=== PATIENT | female | born 1960 | race African-American/Black ===

== ENCOUNTER 2016-09-29 22:35 | Inpatient (IN) | payer OTHER ==
--- NOTE | ~2016-09-29 | HP ---
History And Physical [address] [place]. [address] NAME: ANA LOPEZ : 64 STATUS : ADM Ben PAT#: [id number] AGE: 56 ADM/REG DATE : 09/29/16 MR#: [id number] REPORT SERV DATE: 09/30/16 DICTATED BY: GIULIANA BALDERRAMA DATE: 09/29/16 REPORT STATUS : Draft TRANSCRIBED BY: MODL DATE: 09/29/16 DATE OF ADMISSION: 09/29/2016 CHIEF COMPLAINT: Short of breath. HISTORY OF PRESENT ILLNESS: The patient is a 56-year-old female with past medical history of COPD, hypertension, anxiety, type 2 diabetes, who presents after having progressive shortness of breath over the last week that got worse while she was in mosque yesterday that has been constant, moderate severity with tightness and substernal chest pain nonradiating. No nausea, vomiting, fever, or chills. The patient has increased dyspnea on exertion with chest pain, breathing that happened over the last week where she was not even able to get to the bathroom without dyspnea. The patient has been on oxygen at home, did run out in transit here but now requiring up to 5 L to maintain O2 sats 93%. Symptoms are still currently present but slightly improved at rest, has taken nebulizer treatments at home but it did not improve. The patient reports that a few months ago, she had cardiac cath at [facility] but did not know the results but was not also given any followup either. REVIEW OF SYSTEMS: GENERAL: No fevers or chills. EYES: No eye pain or visual changes. ENT: No congestion or sore throat. NEURO: No headache or confusion. SKIN: No rashes or bruising. RESPIRATORY: Shortness of breath and dyspnea on exertion. CV: Chest tightness with no palpitations. GI: No nausea, vomiting, or constipation. Did have 3 days of diarrhea, but this has since resolved. : No dysuria or hematuria. MUSCULOSKELETAL: No myalgias or arthralgias. No fatigue or polyuria. HEME: No bleeding or bruising. IMMUNOLOGIC: No rhinorrhea. PSYCH: No anxiety or confusion. PAST MEDICAL HISTORY: Significant for COPD, still 1 pack per day smoker, sleep apnea, 2 L by nasal cannula dependent. [place] with coronary artery disease and stent, does not regularly follow with director of neurology, hypertension, diabetes type 2, insulin dependent, hypothyroidism, hyperlipidemia, obesity, depression, anxiety, bipolar versus schizoaffective, GERD with esophagitis, and OA. SURGICAL HISTORY: Three C sections, tubal stents. ALLERGIES: ALLERGIC TO PENICILLIN, CEPHALOSPORIN, CARBAMAZEPINE, AND GRISEOFULVIN. THE PATIENT REPORTS THAT SHE ONLY RECALLS HAVING PENICILLIN ALLERGY THOUGH. FAMILY HISTORY: Of hypertension, CAD, and diabetes. History And Physical [address] [address] NAME: ANA LOPEZ : 64 STATUS : ADM Ben PAT#: [id number] AGE: 56 ADM/REG DATE : 09/29/16 MR#: [id number] REPORT SERV DATE: 09/30/16 DICTATED BY: GIULIANA BALDERRAMA DATE: 09/29/16 REPORT STATUS : Draft TRANSCRIBED BY: DANIEL DATE: 09/29/16 SOCIAL HISTORY: Smokes 1 pack per day since she was 15. No alcohol or illicits. MEDICATIONS: DuoNeb, Proventil, BuSpar, vitamin D, Depakote, TriCor, Glucovance, Lantus, Humalog, levothyroxine, Zestoretic, Prilosec, Invega, Deltasone, Seroquel, Zocor. EKG; sinus tachycardia, rate of 109, QTc 490, left axis deviation. PHYSICAL EXAMINATION: VITAL SIGNS: Blood pressure 128/65, temperature 98.5, pulse 101, respirations 18, O2 sats 90% on 5 L. GENERAL: No acute distress. EYES: No scleral icterus. EOMI. ENT: Nares patent. Tongue midline. RESPIRATORY: Wheezing in left posterior and right anterior lung odom. Decreased lung sounds in lower lung odom. No stridor. CV: Regular rate. No rubs. GI: Soft, nontender, nondistended. : Deferred. MUSCULOSKELETAL: Moves all extremities x4. SKIN: Warm, dry. LYMPH: No cervical or supraclavicular lymphadenopathy. HEME: No bleeding or bruising. NEURO: Alert and oriented. Moves all extremities x4. PSYCH: Calm and pleasant, no acute distress. LABORATORY DATA: WBC 10.7, H and H 15.8 and 47, platelets 364, INR 1.1. Sodium 141, potassium 4.0, chloride 102, bicarb 35, BUN creatinine 17 and 1.26, glucose 126, magnesium 1.8, troponin 0.55, and calcium of 9.3. ASSESSMENT AND PLAN: 1. Acute chronic obstructive pulmonary disease exacerbation. 2. Acute on chronic hypoxic respiratory failure. 3. Chronic troponin elevation. 4. Diabetes type 2. 5. Hypertension. 6. Hypothyroidism. 7. Schizoaffective disease. 8. Tobacco use. PLAN: 1. For acute COPD exacerbation, needs to stop smoking. Steroids, O2, DuoNeb, 2 L to 5 L current requirements, CPAP at night. Continue home CPAP and flutter valve. 2. Acute on chronic hypoxic respiratory failure, on CPAP, O2. Treat underlying COPD, stop smoking. 3. Chronic troponin elevation. Serial monitoring, previously had supply demand mismatch. Recent cath at [facility]. We will try to obtain records, does have recent chest pain, not current. History And Physical [address] [address] NAME: ANA LOPEZ : 64 STATUS : ADM Ben PAT#: [id number] AGE: 56 ADM/REG DATE : 09/29/16 MR#: [id number] REPORT SERV DATE: 09/30/16 DICTATED BY: GIULIANA BALDERRAMA DATE: 09/29/16 REPORT STATUS : Draft TRANSCRIBED BY: DANIEL DATE: 09/29/16 4. Diabetes type 2, on sliding scale insulin. 5. Hypertension, on medications. 6. Hypothyroidism, on replacement. 7. Schizoaffective disease. Continue home medications. 8. Tobacco use. Counseled, not currently interested in stopping smoking. We will additionally offer nicotine patch. All questions answered to the patient at bedside. DDN/MODL Giuliana Balderrama MD / [id number] CC: Jeremi Morales Jr, MD
--- NOTE | ~2016-09-29 | IDS ---
Interim Discharge Summary [facility] [address] [place]. [address] NAME: ANA LOPEZ : 64 STATUS : ADM IN [facility]#: [id number] AGE: 56 ADM/REG DATE : 09/29/16 MR#: [id number] REPORT SERV DATE: 10/03/16 DICTATED BY: JR. MORALES WILLIAM JOHN DATE: 10/03/16 REPORT STATUS : Draft TRANSCRIBED BY: MODL DATE: 10/03/16 ADMISSION DATE: 09/29/2016 DISCHARGE DATE: 10/03/2016 This summary covers the time period from 09/29/2016 through 10/03/2016. WORKING DIAGNOSES: Include 1. Chronic obstructive pulmonary disease exacerbation. 2. Acute on chronic hypoxic respiratory failure. She uses 4-to-5 L oxygen at baseline. 3. Chronically elevated troponins. 4. Insulin-requiring diabetes mellitus. 5. Hypertension. 6. Acquired hypothyroidism. 7. Schizoaffective disorder. 8. Chronic kidney disease, stage III. 9. History of chest pain. 10.Tobacco abuse. OPERATIONS, PROCEDURES, AND TREATMENTS: Operations, procedures, and treatments include 1. Cardiology consultation by Dr. Khan, who saw the patient recently at [facility] and did a catheterization in June 2016 with no significant coronary disease. 2. Pulmonology consult Dr. Rao. 3. PA and lateral chest x-ray done 09/29/2016, which showed prominent bibasilar atelectasis, otherwise no acute process. 4. Chest x-ray done 10/02/2016, which showed residual bibasilar atelectasis without new lung infiltrates or cardiomegaly. 5. CT angiogram of the chest done 10/02/2016, which showed no CTA evidence of pulmonary embolism. There was cardiomegaly with a small pericardial effusion. There was subsegmental atelectasis of the right upper lobe, right middle lobe, and lingular and bilateral lower lobes. No endobronchial lesions noted. There was some mild central lobular emphysema in the upper lung zones. Anticipated discharge medications include 1. BuSpar 20 mg orally daily. 2. Vitamin D 1000 units daily. 3. Depakote 500 mg twice a day. 4. Doxycycline 100 twice a day through 10/05/2016. 5. TriCor 145 mg orally daily. 6. Guaifenesin LA 600 mg twice a day for seven days. 7. Glargine insulin 75 units at bedtime. 8. Synthroid 150 mcg orally daily. 9. Lisinopril/hydrochlorothiazide 20/25, one tablet orally daily. 10.Omeprazole 40 mg daily. 11.Seroquel 600 daily. 12.Invega 6 mg at bedtime. 13.Zocor 40 mg daily. 14.DuoNeb nebulized every four hours. Interim Discharge Summary [address] [address] NAME: ANA LOPEZ : 64 STATUS : ADM IN PAT#: [id number] AGE: 56 ADM/REG DATE : 09/29/16 MR#: [id number] REPORT SERV DATE: 10/03/16 DICTATED BY: JR. MORALES WILLIAM JOHN DATE: 10/03/16 REPORT STATUS : Draft TRANSCRIBED BY: DANIEL DATE: 10/03/16 15.Dulera two puffs twice a day. 16.Glucovance 5/500 one tablet twice a day. 17.Albuterol metered dose inhaler four times a day as needed. 18.Sliding scale Humalog insulin. 19.Prednisone 40 mg daily for three days, then 20 daily for three days, then 10 daily for three days, then 5 mg chronically as she was previously on. HOSPITAL COURSE: The patient is a 56-year-old female who presented to the emergency room on 09/29/2016, with shortness of breath. She has chronic hypoxic respiratory failure and is on 4-to-5 L at home. She said she got more short of breath when she went to [employer] the prior day. She also complained of moderate severity chest pressure and tightness without nausea, fevers, or chills and also had increasing dyspnea on exertion. Initial exam was significant for blood pressure 128/65, temperature 98.5, heart rate 101, respiratory rate of 18, and saturation was 90% on 5 L. Her lung exam showed wheezing in the left posterior and right anterior lung field with decreased breath sounds throughout. There was no edema noted. Initial laboratory was overall unremarkable except the troponin of 0.55. For full details, please see Dr. Pierre's dictated history and physical. Regarding the patient's acute on chronic hypoxic respiratory failure and chest pain, the patient was seen in consultation by Dr. Khan of cardiology who did a cardiac catheterization in June at [facility] at which time, she had normal coronaries. She also has a history of chronically elevated troponin and he felt no further Cardiology needs were identified. The patient's troponins were flat and no other intervention was taken. I did send for records from [facility] but have not received them at the time of this dictation. Regarding her COPD exacerbation, she was on IV steroids as well as bronchodilator therapy with Combivent, to this, I added Mucinex as well as Dulera. The patient remained on eight-to ten liters for the first three days of the hospitalization. We also very much encouraged incentive spirometry as well as a flutter valve with nebulizers to aid in expectoration. The patient failed to improve. I asked Pulmonology, Dr. Rao, to see the patient. He felt that the instituted measures were reasonable and did request a CT angiogram of the chest which did not show pulmonary embolism, it did show prominent atelectatic changes and mild upper lobe centrilobular emphysematous change. The patient has been weaned down to 5 L this morning. The plan is to continue the current medications with an anticipation of a prednisone taper. She is on 5 mg of prednisone chronically. We will get a desaturation study in the morning. If the patient requires less than 5 L or less, we will discharge her home. I discussed this with Dr. Varner who will be assuming care of this patient. Regarding the patient's insulin-requiring diabetes mellitus after IV steroids were discontinued, this was under reasonable control on the above regimen. The remainder of the patient's health problems were unremarkable. I did discuss tobacco cessation with the patient. She had limited interest in this. DISCHARGE DIET: Will be an ADA diet. Interim Discharge Summary [address] [address] NAME: ANA LOPEZ : 64 STATUS : ADM IN PAT#: [id number] AGE: 56 ADM/REG DATE : 09/29/16 MR#: [id number] REPORT SERV DATE: 10/03/16 DICTATED BY: JR. MORALES WILLIAM JOHN DATE: 10/03/16 REPORT STATUS : Draft TRANSCRIBED BY: DANIEL DATE: 10/03/16 ACTIVITY: As tolerated. FOLLOWUP: Followup, when the patient is discharged, will be with her primary care provider, Dr. Bruce Díaz. For today's lab and exam, please see the daily progress notes. WJF/MODL Jeremi Morales Jr, MD / [id number] CC: Jeremi Morales Jr, MD Raphael Lanade, M.D.
--- NOTE | ~2016-09-29 | CN ---
Consultation Report [facility] [address] [place] [place]. [address] NAME: ANA LOPEZ : 64 STATUS : ADM Ben PAT#: [id number] AGE: 56 ADM/REG DATE : 09/29/16 MR#: [id number] REPORT SERV DATE: 10/01/16 DICTATED BY: BON KHAN DATE: 09/30/16 REPORT STATUS : Draft TRANSCRIBED BY: MODL DATE: 09/30/16 CARDIOLOGY CONSULTATION DATE OF CONSULTATION: 09/30/2016 REASON FOR REFERRAL: Chest pain and positive troponin. HISTORY OF PRESENT ILLNESS: A 56-year-old patient I saw over at [facility] in 06/2016. She had a similar presentation. Cardiac catheterization was normal. She tells me since her 06/2016 discharge from [facility] she has actually felt well until Thursday where she developed sudden onset of chest pain. She describes as sharp in nature. Denies any physical activities that may have produced musculoskeletal strain. She has not seen Dr. Díaz since her 06/[address] Antonio is her blackener. She is on 3 L of oxygen at home by nasal cannula and continues to smoke. Her troponins are fairly flat, unchanged at 0.5. EKG without dynamic ST-T changes, and she is currently in no distress getting respiratory treatment. She claims that since arrival she has improved, and there have been no additional clinical concerns. Other medical problems include obesity, hypertension, diabetes mellitus, unspecified psychiatric problems, and continued tobacco use, which presented health risks. Case was discussed briefly with the nurse as well as a respiratory therapist in the room. Vital signs have been reviewed. PHYSICAL EXAMINATION: GENERAL: A pleasant Afro-Swiss female, in no distress. Lying flat. Appears to be fairly comfortable. She is receiving nebulizer treatment via face mask. HEENT: Unremarkable. Neck veins are flat. LUNGS: Fairly clear except for very end-expiratory wheeze, which is very short. This was also appreciated by the respiratory therapist. HEART: Sounds are regular. No loud murmurs, rubs, gallops or clicks. ABDOMEN: Soft. Extremities have no edema. LABS: Fairly unremarkable. No white count elevation. Troponins are 0.58 and 0.55 respectively. IMPRESSION: 1. Atypical chest pain. Recent cardiac catheterization demonstrating essentially normal coronaries. 2. Chronic obstructive pulmonary disease, on home oxygen. Continues to smoke. 3. Obesity. 4. Hypertension. PLAN: No further cardiac testing is recommended at this time. I will cancel the remaining troponins if appear to be flat. She may have some type of chronic troponin elevation. It is very minimal and from a noncardiac source. Consultation Report [facility] [address] [place] [place]. [address] NAME: ANA LOPEZ : 64 STATUS : ADM Ben PAT#: [id number] AGE: 56 ADM/REG DATE : 09/29/16 MR#: [id number] REPORT SERV DATE: 10/01/16 DICTATED BY: BON KHAN. DATE: 09/30/16 REPORT STATUS : Draft TRANSCRIBED BY: DANIEL DATE: 09/30/16 Thank you for allowing me to participate in her care. RODRIGO/DANIEL Bon Khan D.O. / [id number] CC: Jeremi Morales Jr, MD
--- NOTE | ~2016-09-29 | CN ---
Consultation Report [address] [place]. [address] NAME: ANA LOPEZ : 64 STATUS : ADM IN PAT#: [id number] AGE: 56 ADM/REG DATE : 09/29/16 MR#: [id number] REPORT SERV DATE: 10/03/16 DICTATED BY: MELISA SAVAGE DATE: 10/02/16 REPORT STATUS : Draft TRANSCRIBED BY: MODL DATE: 10/02/16 DATE OF CONSULTATION: Dear Dr. Pierre: Thank you for requesting my opinion regarding evaluation and management of Ms. Ana Lopez's shortness of breath. Ms. Silverman is a pleasant 56-year-old female with a significant past medical history of obesity, COPD, hypertension, anxiety, type 2 diabetes, who presented with 1-week history of worsening shortness of breath. She developed sudden onset of worsening substernal chest pain and pressure, nonradiating, moderate in intensity, and well-localized. The patient underwent cardiac catheterization at [facility] and transferred over to [facility] for further medical management. The patient states that she has gotten significantly better as an inpatient and her symptoms are now mild in nature. REVIEW OF SYSTEMS: A detailed 14-point review of systems was completed. Pertinent positives and negatives are listed above. PAST MEDICAL HISTORY: 1. COPD. 2. Active tobacco abuse, one pack per day smoker. 3. Sleep apnea. 4. 2 L nasal cannula. 5. [place] with coronary artery disease and stent. 6. Hypertension. 7. Diabetes type 2. 8. Hypothyroidism. 9. Hyperlipidemia. 10.Obesity. 11.Depression. 12.Anxiety. 13.Bipolar versus schizoaffective disorder. 14.GERD with esophagitis. 15.Osteoarthritis. PAST SURGICAL HISTORY: Three C sections and tubal stents. ALLERGIES: PENICILLIN, CEPHALOSPORIN, CARBAMAZEPINE, AND GRISEOFULVIN. HOME MEDICATIONS: Reviewed and located in the paper chart. FAMILY HISTORY: Coronary artery disease, hypertension, diabetes. SOCIAL HISTORY: The patient smokes one pack per day since the age of 15. She denies any Consultation Report [address] [place]. [address] NAME: ANA LOPEZ : 64 STATUS : ADM IN PAT#: [id number] AGE: 56 ADM/REG DATE : 09/29/16 MR#: [id number] REPORT SERV DATE: 10/03/16 DICTATED BY: JANETTECHENCHOTREY DATE: 10/02/16 REPORT STATUS : Draft TRANSCRIBED BY: DANIEL DATE: 10/02/16 significant alcohol or illicit drug abuse. PHYSICAL EXAMINATION: VITAL SIGNS: Afebrile, T-current of 97.1, pulse of 84, respiratory rate of 18, 6 L nasal cannula, 90%, blood pressure 128/73. GENERAL: In no acute distress. Able to communicate in full paragraphs at a time. HEENT: Normocephalic and atraumatic. Pupils are equal, round, and reactive to light and accommodation. Posterior oropharynx is clear. NECK: No JVD. Thick neck. CARDIOVASCULAR: Regular rate and rhythm. S1 and S2 present. LUNGS: Coarse bilateral breath sounds. No wheezes. ABDOMEN: Nontender. Nondistended. Soft. Positive bowel sounds. EXTREMITIES: No clubbing, cyanosis, or edema. SKIN: No new rashes, lesions, or ulcers. PSYCHIATRIC: Alert and oriented x3. LABORATORY STUDIES: White count of 18, hemoglobin of 15, platelet count of 321. Chemistries demonstrate a creatinine of 1.01. IMAGING: Chest x-ray on 10/02/2016, demonstrates residual bibasilar atelectasis and no new lung infiltrates and cardiomegaly. I reviewed chest x-ray on 10/02/2016, and agree with the above interpretation. ASSESSMENT AND PLAN: Ms. Ana Lopez is a pleasant 56-year-old female with a significant past medical history of obesity, obstructive sleep apnea, COPD, active tobacco abuse, and coronary artery disease, who presents to [facility] with shortness of breath and a history of chest pain. Her chest pain has significantly resolved and currently she says that her symptoms have improved, but she is requiring increasing amounts of oxygen. She started 2 L nasal cannula and is now requiring 5 to 7 L. The clinical radiographic presentation is most consistent with: 1. Bibasilar atelectasis. 2. Acute exacerbation of COPD. 3. Concomitant potential heart failure. RECOMMENDATIONS: At this point, I recommend the followin. For acute exacerbation of COPD, I would recommend continuing Solu-Medrol, Dulera, Combivent, and Mucomyst. 2. Change Solu-Medrol to prednisone 40 mg p.o. daily. The patient had a prominent leukocytosis. 3. Obtain CTA of the chest to rule out underlying pulmonary embolism given her history of chest pain and troponin leak as well as re-evaluate her lung parenchyma especially with regard to the bibasilar atelectasis. Thank you for allowing me to participate in Ms. Lopez's care. Consultation Report [address] [place]. [address] NAME: ANA LOPEZ : 64 STATUS : ADM IN PAT#: [id number] AGE: 56 ADM/REG DATE : 09/29/16 MR#: [id number] REPORT SERV DATE: 10/03/16 DICTATED BY: MELISA SAVAGE DATE: 10/02/16 REPORT STATUS : Draft TRANSCRIBED BY: DANIEL DATE: 10/02/16 ROLANDO/DANIEL Melisa Savage M.D. / [id number] CC: Jeremi Morales Jr, MD Raphael Lanade, M.D.
--- NOTE | ~2016-09-29 | DS ---
Discharge Summary [id number] [place]. [address] NAME: ANA LOPEZ : 64 STATUS : DIS IN PAT#: [id number] AGE: 56 ADM/REG DATE : 09/29/16 MR#: [id number] REPORT SERV DATE: 10/04/16 DICTATED BY: JERSON SEGURA DATE: 10/04/16 REPORT STATUS : Draft TRANSCRIBED BY: MODL DATE: 10/04/16 ADMISSION DATE: 09/29/2016 DISCHARGE DATE: 10/04/2016 ADDENDUM: This an addendum to the interim discharge summary that was dictated by Dr. Jeremi Morales on 10/03/2016 because the patient was still hospitalized and she went home on 10/04/2016. DISCHARGE DIAGNOSES: 1. Chronic obstructive pulmonary disease exacerbation, resolved. 2. Chronic hypoxemic respiratory failure at home, uses 4-5 L of oxygen at baseline. 3. Insulin-dependent diabetes mellitus, controlled. 4. Hypertension, controlled. 5. History of hypothyroidism. 6. History of chronically elevated troponins with a history of normal coronary catheterization in 06/2016. No significant coronary artery disease. 7. Tobacco abuse. CONSULTANTS ON THE CASE: Field Scout, Dr. Rao. HOSPITAL COURSE: For the details of hospitalization, work done and discharge medications, please see interim discharge summary dictated by Dr. Jeremi Morales yesterday on 10/03/2016. The patient's discharge was delayed because the patient's oxygenation needed to be checked today, and the patient's oxygenation was 87-89 on 4 L nasal cannula and on 5 L was 96-97 at rest and the patient's oxygenation on ambulation was 92% on 6 L of nasal cannula. The patient was evaluated by ict developer, Dr. Rao this morning after I saw the patient, and Dr. Rao said that this is patient's baseline oxygen requirement. Since her oxygenation is 91-92 on 4 L at rest and 92 on 6 L on ambulation, he recommended the patient to be discharged today. As I dictated above, discharge medications per Dr. Morales's recommendations. MG/MODL Jerson Segura M.D. / [id number] CC: Garth Mark M.D.
--- NOTE | ~2016-09-29 | DS ---
Discharge Summary [facility] [address] [place]. [address] NAME: ANA LOPEZ : 64 STATUS : DIS IN PAT#: [id number] AGE: 56 ADM/REG DATE : 09/29/16 MR#: [id number] REPORT SERV DATE: 10/04/16 DICTATED BY: JERSON SEGURA DATE: 10/04/16 REPORT STATUS : Draft TRANSCRIBED BY: MODL DATE: 10/04/16 ADMISSION DATE: 09/29/2016 DISCHARGE DATE: 10/04/2016 ADDENDUM Since the patient's blood sugar was controlled on the discharge medications, we told the patient to decrease her home Levemir to 25 units at bedtime. Use NovoLog, to decrease the NovoLog to 5 units twice a day. Nurse Whitney called the patient and told her to decrease her Lantus to 25 units at bedtime and to decrease her NovoLog to 5 units twice a day in addition to sliding scale. The patient was agreeable to it and she will need to follow up with her primary care physician, Dr. Bruce Díaz, next week as well as with the hosted services analyst, Dr. Antonio in one- to-two weeks. MG/MODL Jerson Segura M.D. / [id number] CC: Garth Mark M.D.
[2016-09-29 18:19] LABS: BASOPHILS 0.2 %; BASOPHILS ABSOLUTE 0.02 10/3/uL (0.0-0.16); EOSINOPHILS 0.5 %; EOSINOPHILS ABSOLUTE 0.05 10/3/uL (0.0-0.53); ER CBC TAT 0 Hrs 05 Mins; HEMOGLOBIN 15.8 g/dL (12.0-16.0); IMMATURE GRANULOCYTES 0.5 %; IMMATURE GRANULOCYTES ABSOLUTE 0.05 10/3/uL (0.0-0.11); LYMPHOCYTES 30.7 %; LYMPHOCYTES ABSOLUTE 3.29 10/3/uL (0.67-4.30); MEAN CORPUS HGB CONC 33.6 g/dL (32.0-36.0); MEAN CORPUSCULAR HEMOGLOB 33.4 pg (26.0-34.0); MEAN PLATELET VOLUME 9.8 fL (9.2-13.0); MONOCYTES ABSOLUTE 0.97 10/3/uL (0.21-1.20); NEUTROPHILS 59.1 %; NEUTROPHILS ABSOLUTE 6.35 10/3/uL (2.02-8.40); PLATELET COUNT 364 10/3/uL (150-400); RED CELL COUNT 4.73 10/6/uL (4.0-5.6); WHITE BLOOD CELLS 10.7 10/3/uL (4.5-10.5)
[2016-09-29 18:22] LABS: MANUAL DIFF NO %; MEAN CORPUSCULAR VOLUME 99.4 fL (80-100)
[2016-09-29 18:35] LABS: BUN (BLOOD UREA NITROGEN) 17 MG/DL (6-23); CALCIUM, SERUM 9.3 MG/DL (8.5-10.4); CHEST PAIN PROFILE TAT 0 Hrs 21 Mins; CHLORIDE, SERUM 102 MMOL/L (96-112); CO2 (CARBON DIOXIDE) 35 MMOL/L (24-34); CREATININE 1.26 MG/DL (0.55-1.02); GFR AFRICAN AMERICAN 56 ML/MIN (>=60); GFR NON AFRICAN AMERICAN 48 ML/MIN (>=60); GLUCOSE, SERUM 126 MG/DL (60-99); INTERNATIONAL NORMAL RATI 1.1 UNITS (-); PARTIAL THROMBO TIME 32.6 SEC (22.5-37.2); PROTIME (NOT ORD) 14.5 SEC (12.0-14.5); SODIUM, SERUM 141 MMOL/L (135-148); TROPONIN I 0.55 NG/ML (<0.05)
[~2016-09-29 22:35] MED LIST: ALEVE220 MG PO; BUSPAR10 PO; CELEXA40 MG PO; DEPAKOT500 PO; DIABETA5 PO; GLUCOPHAGE1000 MG PO; GLUCOV5 PO; HABIT14 TOP; HALF81 PO; HUMALOG SC; INVEGA6 MG PO; LANTUS SC; LEVOTHROID100 MCG PO; LOFIBRA134 MG PO; MAXIMUM D3 PO; NEXIUM40 PO; NOVOLOGMIX SC; NTG150 SL; P20 PO; PRILOSEC40 MG PO; PRINZIDE1 TA1 PO; PROVENTSOL INH; SEROQUEL300 MG PO; SEROQUEL400 MG PO; SYMBICORT; SYMBICORT 80/4.1 INH INH; SYN.15 PO; SYNTHROID175 MCG PO; T PO; TEARS NATURA OPH; TRICOR145 PO; VENTOLIN HFA INH; VITAMIN D PO; XYZAL5 MG PO; ZESTORETIC1 TA1 PO; ZOCOR40 PO
[2016-09-29] MEDS ORDERED: ZOCOR40 PO (22:44)
[2016-09-29] MEDS ORDERED: SEROQUEL300 MG PO (22:44)
[2016-09-29] MEDS ORDERED: GLUCOV5 PO (22:45)
[2016-09-29] MEDS ORDERED: INVEGA6 MG PO (22:45)
[2016-09-29] MEDS ORDERED: PRILOSEC40 MG PO (22:45)
[2016-09-29] MEDS ORDERED: DEPAKOT500 PO (22:45)
[2016-09-29] MEDS ORDERED: LEVOTHYROXIN150 MCG PO (22:46)
[2016-09-29] MEDS ORDERED: VITAMIN D1000 UNI1 PO (22:46)
[2016-09-29] MEDS ORDERED: ZESTORETIC1 TA1 PO (22:46)
[2016-09-29] MEDS ORDERED: BUSPAR10 PO (22:46)
[2016-09-29] MEDS ORDERED: PROVHFA INH (22:47)
[2016-09-29] MEDS ORDERED: DUONEB INH (22:47)
[2016-09-29] MEDS ORDERED: P5 PO (22:47)
[2016-09-29] MEDS ORDERED: HUMALOG SC (22:47)
[2016-09-29] MEDS ORDERED: LANTUS SC (22:47)
[2016-09-29] MEDS ORDERED: TRICOR145 PO (22:47)
[2016-09-30 04:10] LABS: BASOPHILS 0.1 %; BASOPHILS ABSOLUTE 0.01 10/3/uL (0.0-0.16); EOSINOPHILS 0 %; HEMATOCRIT 45.7 % (36.0-48.0); HEMOGLOBIN 14.9 g/dL (12.0-16.0); IMMATURE GRANULOCYTES 1.1 %; LYMPHOCYTES 16.9 %; LYMPHOCYTES ABSOLUTE 1.52 10/3/uL (0.67-4.30); MEAN CORPUS HGB CONC 32.6 g/dL (32.0-36.0); MEAN CORPUSCULAR HEMOGLOB 32.7 pg (26.0-34.0); MEAN CORPUSCULAR VOLUME 100.2 fL (80-100); MEAN PLATELET VOLUME 10.1 fL (9.2-13.0); MONOCYTES 1.1 %; NEUTROPHILS 80.8 %; NEUTROPHILS ABSOLUTE 7.29 10/3/uL (2.02-8.40); PLATELET COUNT 344 10/3/uL (150-400); RBC DISTRIBUTION WIDTH 18.9 % (12.0-16.0); RED CELL COUNT 4.56 10/6/uL (4.0-5.6)
[2016-09-30 04:14] LABS: BUN (BLOOD UREA NITROGEN) 19 MG/DL (6-23); CALCIUM, SERUM 9.2 MG/DL (8.5-10.4); CHLORIDE, SERUM 104 MMOL/L (96-112); CREATININE 1.23 MG/DL (0.55-1.02); GFR AFRICAN AMERICAN 58 ML/MIN (>=60); GFR NON AFRICAN AMERICAN 50 ML/MIN (>=60); MANUAL DIFF NO %; POTASSIUM, SERUM 4.5 MMOL/L (3.5-5.3); SODIUM, SERUM 142 MMOL/L (135-148)
[2016-09-30 04:19] LABS: CO2 (CARBON DIOXIDE) 29 MMOL/L (24-34); GLUCOSE, SERUM 218 MG/DL (60-99); TROPONIN I 0.58 NG/ML (<0.05)
[2016-10-01 05:01] LABS: CALCIUM, SERUM 9.7 MG/DL (8.5-10.4); CHLORIDE, SERUM 98 MMOL/L (96-112); CREATININE 1.27 MG/DL (0.55-1.02); GFR AFRICAN AMERICAN 55 ML/MIN (>=60); GFR NON AFRICAN AMERICAN 48 ML/MIN (>=60); POTASSIUM, SERUM 4.4 MMOL/L (3.5-5.3); SODIUM, SERUM 137 MMOL/L (135-148)
[2016-10-01 05:06] LABS: BUN (BLOOD UREA NITROGEN) 26 MG/DL (6-23); CO2 (CARBON DIOXIDE) 34 MMOL/L (24-34); GLUCOSE, SERUM 337 MG/DL (60-99)
[2016-10-02 04:31] LABS: BASOPHILS 0.1 %; BASOPHILS ABSOLUTE 0.01 10/3/uL (0.0-0.16); EOSINOPHILS 0 %; HEMATOCRIT 46.8 % (36.0-48.0); HEMOGLOBIN 15.7 g/dL (12.0-16.0); IMMATURE GRANULOCYTES 0.6 %; IMMATURE GRANULOCYTES ABSOLUTE 0.11 10/3/uL (0.0-0.11); LYMPHOCYTES 5.7 %; LYMPHOCYTES ABSOLUTE 1.06 10/3/uL (0.67-4.30); MEAN CORPUS HGB CONC 33.5 g/dL (32.0-36.0); MEAN CORPUSCULAR HEMOGLOB 32.8 pg (26.0-34.0); MEAN CORPUSCULAR VOLUME 97.7 fL (80-100); MEAN PLATELET VOLUME 9.7 fL (9.2-13.0); MONOCYTES 6.3 %; MONOCYTES ABSOLUTE 1.16 10/3/uL (0.21-1.20); NEUTROPHILS 87.3 %; NEUTROPHILS ABSOLUTE 16.16 10/3/uL (2.02-8.40); PLATELET COUNT 321 10/3/uL (150-400); RBC DISTRIBUTION WIDTH 18.1 % (12.0-16.0); RED CELL COUNT 4.79 10/6/uL (4.0-5.6)
[2016-10-02 04:33] LABS: MANUAL DIFF NO %; WHITE BLOOD CELLS 18.5 10/3/uL (4.5-10.5)
[2016-10-02 04:34] LABS: CHLORIDE, SERUM 101 MMOL/L (96-112); CO2 (CARBON DIOXIDE) 30 MMOL/L (24-34); CREATININE 1.01 MG/DL (0.55-1.02); GFR AFRICAN AMERICAN 73 ML/MIN (>=60); GFR NON AFRICAN AMERICAN 63 ML/MIN (>=60); POTASSIUM, SERUM 4.3 MMOL/L (3.5-5.3); SODIUM, SERUM 140 MMOL/L (135-148)
[2016-10-02 04:39] LABS: BUN (BLOOD UREA NITROGEN) 35 MG/DL (6-23); GLUCOSE, SERUM 188 MG/DL (60-99)
[2016-10-03 05:33] LABS: BASOPHILS 0.1 %; BASOPHILS ABSOLUTE 0.01 10/3/uL (0.0-0.16); EOSINOPHILS 0 %; HEMATOCRIT 45.6 % (36.0-48.0); HEMOGLOBIN 15.3 g/dL (12.0-16.0); IMMATURE GRANULOCYTES 0.7 %; IMMATURE GRANULOCYTES ABSOLUTE 0.08 10/3/uL (0.0-0.11); LYMPHOCYTES ABSOLUTE 2.78 10/3/uL (0.67-4.30); MEAN CORPUS HGB CONC 33.6 g/dL (32.0-36.0); MEAN CORPUSCULAR HEMOGLOB 32.7 pg (26.0-34.0); MEAN CORPUSCULAR VOLUME 97.4 fL (80-100); MEAN PLATELET VOLUME 10.1 fL (9.2-13.0); MONOCYTES 13.6 %; MONOCYTES ABSOLUTE 1.58 10/3/uL (0.21-1.20); NEUTROPHILS 61.6 %; NEUTROPHILS ABSOLUTE 7.15 10/3/uL (2.02-8.40); PLATELET COUNT 281 10/3/uL (150-400); RBC DISTRIBUTION WIDTH 18.2 % (12.0-16.0); RED CELL COUNT 4.68 10/6/uL (4.0-5.6); WHITE BLOOD CELLS 11.6 10/3/uL (4.5-10.5)
[2016-10-03 05:34] LABS: MANUAL DIFF NO %
[2016-10-03 05:38] LABS: CALCIUM, SERUM 8.1 MG/DL (8.5-10.4); CHLORIDE, SERUM 100 MMOL/L (96-112); CO2 (CARBON DIOXIDE) 30 MMOL/L (24-34); CREATININE 0.95 MG/DL (0.55-1.02); GFR AFRICAN AMERICAN 79 ML/MIN (>=60); GFR NON AFRICAN AMERICAN 68 ML/MIN (>=60); POTASSIUM, SERUM 4.1 MMOL/L (3.5-5.3); SODIUM, SERUM 138 MMOL/L (135-148)
[2016-10-03 05:39] LABS: BUN (BLOOD UREA NITROGEN) 31 MG/DL (6-23); GLUCOSE, SERUM 146 MG/DL (60-99)
[2016-10-04] MEDS ORDERED: IVVIBRA (15:05)
[2016-10-04] MEDS ORDERED: MUCINEX600 MG PO (15:06)
[2016-10-04] MEDS ORDERED: DULERA 200 MCG/13 GM INH (15:19)
[2016-10-04] MEDS ORDERED: P1 (15:20)
[2016-10-04] MEDS ORDERED: PROAIR HFA INH (15:21)
[2016-10-04] MEDS ORDERED: ATROVENTUD INH (15:23)
[2017-02-28] MEDS ORDERED: ANTIBIOTIC (23:12)
[2017-02-28] MEDS ORDERED: SEROQUEL300 MG PO (23:12)
[2017-02-28] MEDS ORDERED: GLUCOV5 PO (23:13)
[2017-02-28] MEDS ORDERED: HUMALOGPEN SC (23:13)
[2017-02-28] MEDS ORDERED: LANTUS SC (23:13)
[2017-02-28] MEDS ORDERED: DEPAKOT500 PO (23:14)
[2017-02-28] MEDS ORDERED: ZOCOR40 PO (23:14)
[2017-02-28] MEDS ORDERED: MAXIMUM D3 PO (23:15)
[2017-02-28] MEDS ORDERED: NITROSTAT0.4 MG SL (23:15)
[2017-02-28] MEDS ORDERED: PRILOSEC40 MG PO (23:15)
[2017-02-28] MEDS ORDERED: BUSPAR10 PO ×2 (23:15→23:16)
[2017-02-28] MEDS ORDERED: TRICOR145 PO (23:16)
[2017-02-28] MEDS ORDERED: ZESTORETIC1 TA1 PO (23:16)
[2017-02-28] MEDS ORDERED: SYN112 PO (23:16)
[2017-02-28] MEDS ORDERED: DUONEB INH (23:17)
[2017-02-28] MEDS ORDERED: DULERA 200 MCG/13 GM INH (23:17)
[2017-02-28] MEDS ORDERED: ZANAFLEX 4 MG TA4 MG PO (23:17)
[2017-02-28] MEDS ORDERED: AMIT25 PO (23:18)
[2017-02-28] MEDS ORDERED: VENTOLIN HFA PO (23:18)
[2017-02-28] MEDS ORDERED: INVEGA6 MG PO (23:28)
== END 2016-10-04 16:20 | disposition home or self-care (01) | DRG 189 ==
LOC: ER 22:35 → CDU1 23:14 → 5NO 09-30 19:24
PROVIDERS: Emergency Medicine; Internal Medicine
DX: J96.21 Acute and chronic respiratory failure with hypoxia (principal); J44.1 Chronic obstructive pulmonary disease with (acute) exacerbation; Z99.81 Dependence on supplemental oxygen; J98.11 Atelectasis; I10 Essential (primary) hypertension; E11.9 Type 2 diabetes mellitus without complications; E03.9 Hypothyroidism, unspecified; F25.9 Schizoaffective disorder, unspecified; F17.210 Nicotine dependence, cigarettes, uncomplicated; F41.9 Anxiety disorder, unspecified; G47.33 Obstructive sleep apnea (adult) (pediatric); I25.10 Atherosclerotic heart disease of native coronary artery without angina pectoris; E66.9 Obesity, unspecified; E78.5 Hyperlipidemia, unspecified; F32.9 Major depressive disorder, single episode, unspecified; K21.9 Gastro-esophageal reflux disease without esophagitis; M19.90 Unspecified osteoarthritis, unspecified site; Z88.1 Allergy status to other antibiotic agents; Z88.8 Allergy status to other drugs, medicaments and biological substances; Z82.49 Family history of ischemic heart disease and other diseases of the circulatory system; Z83.3 Family history of diabetes mellitus; I25.2 Old myocardial infarction; Z79.4 Long term (current) use of insulin; Z95.5 Presence of coronary angioplasty implant and graft; Z88.0 Allergy status to penicillin; Z98.890 Other specified postprocedural states
CPT/HCPCS: 71020; 71275; 80048; 82962; 83735; 83880; 84484; 85025; 85610; 85730; 87449; 93005; 94640; 99285; A9270-GY; J2405; J2550; J2920; J2930; Q9967